=== PATIENT | male | born 1990 | race Caucasian/White ===

== ENCOUNTER 2021-12-11 20:20 | Emergency (ER) | payer OTHER ==
[~2021-12-11] VITALS: Ht 180.3 cm; Wt 118.4 kg
[2021-12-11 20:38] VITALS: BP_SYST 157
--- NOTE | 2021-12-11 20:44 | NUR ---
31 YR OLD AOX4 AMBULATORY MALE PT WITH COMPLAINT OF HIGH BLOOD PRESSURE READING AT HOME. PT REPORTS POUNDING HEADACHE WITH NAUSEA. PT REPORTS BEING DIAGNOSED WITH HYPERTENSION WITH A PRESCRIPTION OF LISINOPRIL. PT STATES HE HAS NOT TAKEN LISIONPRIL IN ABOUT 6 MONTHS. PT DENIES ANY OTHER HEALTH HISTORY. PT PLACED IN BED 1.
--- NOTE | 2021-12-11 21:00 | NUR ---
ER at bedside examining patient.
[2021-12-11] MEDS ORDERED: LISINOPRIL 10 MG TABLET (PRINIVIL) PO ONE (21:30)
--- NOTE | 2021-12-11 21:30 | NUR ---
HTN medication administered as ordered. Pt connected to VS monitor. No acute signs of distress. Breathig adequately on RA.
[2021-12-11 21:40] LABS: BASOPHILS % (AUTO) 0.5 % (0.0-2.0); EOSINOPHILS # (AUTO) 0.2 K/uL (0.0-0.4); EOSINOPHILS % (AUTO) 3.3 % (0.0-4.0); HEMATOCRIT 46.3 % (36-54); HEMOGLOBIN 16.1 g/dL (14.0-18.0); LYMPHOCYTES # (AUTO) 0.7 K/uL (1.0-5.5); LYMPHOCYTES % (AUTO) 11.5 % (20.5-51.5); MEAN CORPUSCULAR HEMOGLOBIN 28 pg (27-31); MEAN CORPUSCULAR HGB CONC 35 % (32-36); MEAN CORPUSCULAR VOLUME 80 fL (79.0-98.0); MONOCYTES # (AUTO) 0.7 K/uL (0.0-1.0); MONOCYTES % (AUTO) 11.1 % (1.7-9.3); NEUTROPHILS # (AUTO) 4.7 K/uL (1.8-7.7); NEUTROPHILS % (AUTO) 73.6 % (40.0-70.0); RED CELL DISTRIBUTION WIDTH 13.8 % (9.0-15.0); WHITE BLOOD COUNT (AUTO) 6.3 K/uL (4.8-10.8)
[2021-12-11 22:00] LABS: ANION GAP 9 (5-15); CALCIUM 9.2 mg/dL (8.4-11.0); CHLORIDE 101 mmol/L (98-107); CREATININE 0.93 mg/dL (0.55-1.30); GLUCOSE 122 mg/dL (70-99); POTASSIUM 3.6 mmol/L (3.5-5.1); SODIUM SERUM 136 mmol/L (136-145); UREA NITROGEN, BLOOD 13 mg/dL (8-21)
[2021-12-11 22:09] LABS: ALANINE AMINOTRANSFERASE 88 U/L (12-78); ALBUMIN 4.3 g/dL (3.4-4.8); ASPARTATE AMINOTRANSFERASE 27 U/L (10-37); TOTAL BILIRUBIN 0.3 mg/dL (0.0-1.0)
[2021-12-11 22:13] LABS: GFR AFRICAN AMERICAN 122 mL/min (>90)
[2021-12-11 22:40] LABS: PLATELET COUNT (AUTO) 90 K/uL (130-430)
[2021-12-11] MEDS ORDERED: ATENOLOL 50 MG TABLET (TENORMIN) PO ONE (22:45)
[2021-12-12] MEDS ORDERED: ATEN50TA PO (00:26)
[2021-12-12] MEDS ORDERED: LISI20TA30 PO (00:26)
[2021-12-12 01:10] VITALS: BP_SYST 149
--- NOTE | 2021-12-12 01:10 | NUR ---
Patient given written and verbal discharge instructions and verbalizes understanding. ER MD Anders discussed with patient the results and treatment provided. Patient in stable condition. ID arm band removed. Patient educated on diagnosis and to follow up with PMD. Opportunity for questions provided and answered. Medication side effect fact sheet provided.
== END 2021-12-12 01:10 | disposition home or self-care (01) ==
LOC: SED 20:20
DX: I10 Essential (primary) hypertension (principal); Z79.899 Other long term (current) drug therapy; Z91.14 Patient's other noncompliance with medication regimen
CPT/HCPCS: 36415; 71045; 80053; 83880; 84484; 85025; 93005; 99285